=== PATIENT | male | born 1995 | race Caucasian/White ===

== ENCOUNTER 2021-06-03 19:56 | Emergency (ER) | payer BC ==
[~2021-06-03] VITALS: Ht 190.5 cm; Wt 97.5 kg
[2021-06-03] MEDS ORDERED: IBU600 MG PO ×2 (20:24→20:39)
[2021-06-03] MEDS ORDERED: SSD CREAM 1% 5050 GM TOP ×2 (20:24→20:39)
[2021-06-03 21:05] VITALS: BP 132/90
== END 2021-06-03 21:06 | disposition home or self-care (01) ==
LOC: ER 19:56
DX: T23.271A Burn of second degree of right wrist, initial encounter (principal); T23.201A Burn of second degree of right hand, unspecified site, initial encounter; X08.8XXA Exposure to other specified smoke, fire and flames, initial encounter; Y93.G3 Activity, cooking and baking; Y92.89 Other specified places as the place of occurrence of the external cause; Y99.8 Other external cause status